=== PATIENT | female | born 1980 | race Caucasian/White ===

== ENCOUNTER → 2020-08-01 | Outpatient (CLI) | payer MEDICAID | END | disposition home or self-care (01) | LOC: RAD 17:54 | PROVIDERS: ATTEND Neurological Surgery | DX: M43.8X6 Other specified deforming dorsopathies, lumbar region (principal) | CPT/HCPCS: 72114 ==

== ENCOUNTER 2021-05-02 17:44 | Emergency (ER) | payer MEDICAID ==
[~2021-05-02] VITALS: Ht 170.2 cm; Wt 60.0 kg
[2021-05-02] MEDS ORDERED: IBUPROFEN 600 MG TABLET PO ONE (18:30)
[2021-05-02] MEDS ORDERED: OXYcodone/APAP 5/325MG TABLET PO ONE (18:30)
[2021-05-02] MEDS ORDERED: LIDOCAINE-MPF 1%, 5ML INFIL ONE (18:30)
[2021-05-02] MEDS ORDERED: LIDOCAINE-MPF 1%, 5ML ONE (18:33)
[2021-05-02] MEDS ORDERED: OXYcodone/APAP 5/325MG TABLET ONE (18:33)
[2021-05-02] MEDS ORDERED: IBUPROFEN 600 MG TABLET ONE (18:33)
--- NOTE | 2021-05-02 18:55 | NUR ---
REPORT FROM LILLIAN ZAIDI
[2021-05-02] MEDS ORDERED: NEOSPORIN OINT. PKT 1 PACKET ONE (19:25)
--- NOTE | 2021-05-02 20:05 | NUR ---
Patient given discharge instructions and they have confirmed that they understand the instructions. Patient ambulatory with steady gait. NAD, all questions answered appropriately, denies additional needs at this time. No personal belongings left in room after discharge.
[2021-05-02 20:06] VITALS: BP 149/89
== END 2021-05-02 20:07 | disposition home or self-care (01) ==
LOC: ED 18:14
DX: S61.412A Laceration without foreign body of left hand, initial encounter (principal); S61.211A Laceration without foreign body of left index finger without damage to nail, initial encounter; I10 Essential (primary) hypertension; Z90.710 Acquired absence of both cervix and uterus; X58.XXXA Exposure to other specified factors, initial encounter; Y93.89 Activity, other specified; Y92.009 Unspecified place in unspecified non-institutional (private) residence as the place of occurrence of the external cause; Y99.8 Other external cause status
CPT/HCPCS: 12001; 99283